=== PATIENT | male | born 1985 | race Caucasian/White ===

== ENCOUNTER 2020-07-22 17:39 | Emergency (ER) | payer OTHER ==
[~2020-07-22] VITALS: Ht 188 cm; Wt 77.3 kg
[~2020-07-22 17:39] MED LIST: ANTI-INFLAMMATORY; SEPTRA DS 8001 TAB PO; WELLBUTRIN 75MG75 MG PO
[2020-07-22 17:52] VITALS: TEMP 97.2
[2020-07-22] MEDS ORDERED: PREDNISONE20 MG PO (18:17)
[2020-07-22 18:45] VITALS: BP 136/71; PULSE 82
== END 2020-07-22 18:45 | disposition home or self-care (01) ==
LOC: COL.ER 17:39
DX: S80.862A Insect bite (nonvenomous), left lower leg, initial encounter (principal); S80.861A Insect bite (nonvenomous), right lower leg, initial encounter; F17.210 Nicotine dependence, cigarettes, uncomplicated; Z87.820 Personal history of traumatic brain injury; W57.XXXA Bitten or stung by nonvenomous insect and other nonvenomous arthropods, initial encounter

== ENCOUNTER 2020-09-07 15:28 | Emergency (ER) | payer SELFPAY ==
[~2020-09-07] VITALS: Ht 188 cm; Wt 77.3 kg
[~2020-09-07 15:28] MED LIST changes: +PREDNISONE20 MG PO
[2020-09-07 15:34] VITALS: BP 134/75; TEMP 97.3
[2020-09-07] MEDS ORDERED: ISENTRESS400 MG PO (16:12)
[2020-09-07] MEDS ORDERED: TRUVADA PO ×2 (16:12→17:42)
[2020-09-07 16:58] LABS: ALBUMIN 4.8 gm/dL (3.5-5.0); BASO % 0.6 % (0.0-2.0); BILIRUBIN,TOTAL 1.2 mg/dL (0.0-1.0); CALCIUM 9.3 mg/dL (8.4-10.2); CREATININE, serum 0.8 (0.66-1.25); EOS # 0.2 (0.0-0.7); EOS % 4.8 % (0-4.0); GRAN # 1.2 (1.4-6.5); GRAN % 36.4 % (42.2-75.2); HEMATOCRIT 40.7 % (42.0-52.0); HEMOGLOBIN 13.8 g/dl (13.5-18.0); LYMPH # 1.6 (1.2-3.4); LYMPH % 47.1 % (20.0-51.0); MEAN CELL VOLUME 87 fl (80.0-100.0); MEAN CORPUSCULAR HEMOGLOBIN 30 pg (27.0-31.0); MEAN CORPUSCULAR HGB CONC 34 g/dl (33.0-37.0); MEAN PLATELET VOLUME 9.6 fl (7.4-10.4); MONO # 0.4 (0.1-0.6); MONO % 11.1 % (1.7-9.3); PLATELET COUNT 291 K/mm3 (130-400); POTASSIUM 3.7 mmol/L (3.4-5.0); RED BLOOD COUNT 4.67 M/mm3 (4.20-5.60); REDCELL DISTRIBUTION WIDTH-CV 11.9 % (11.5-14.5); TOTAL PROTEIN 7.6 gm/dL (6.4-8.2)
[2020-09-07 17:09] LABS: HIV 1/2 Antibodies Non-Reactive; HIV-1p24 Antigen Non-Reactive
[2020-09-07 18:21] VITALS: PULSE 69
[2020-09-07 18:25] LABS: COLLECTION METHOD CLEAN CATCH
[2020-09-07 18:36] LABS: PH 6 (5-8); SQUAMOUS EPITHELIAL 0-2 /hpf; URINE APPEARANCE Clear; URINE BILIRUBIN Negative (NEGATIVE); URINE BLOOD Negative (NEGATIVE); URINE COLOR Yellow; URINE GLUCOSE Negative (NEGATIVE); URINE KETONE Negative (NEGATIVE); URINE LEUKOCYTE ESTERASE Negative (NEGATIVE); URINE NITRATE Negative (NEGATIVE); URINE PROTEIN(semi-quant) Negative (NEGATIVE); URINE RBC 0-2 /hpf
[2020-09-07 18:37] LABS: MUCOUS Present /lpf; URINE BACTERIA None Seen /hpf
[2020-09-08 17:58] LABS: HEPATITIS B SURFACE ANTIGEN Negative (Negative); HEPATITIS C VIRUS ANTIBODY Negative (Negative)
== END 2020-09-07 18:22 | disposition home or self-care (01) ==
LOC: COL.ER 15:28
PROVIDERS: Physician Assistant
DX: S69.92XA Unspecified injury of left wrist, hand and finger(s), initial encounter (principal); Z79.52 Long term (current) use of systemic steroids; W46.1XXA Contact with contaminated hypodermic needle, initial encounter